=== PATIENT | female | born 1970 | race Caucasian/White ===

== ENCOUNTER 2023-04-04 11:50 | Emergency (ER) | payer SELFPAY ==
[~2023-04-04] VITALS: Ht 144.8 cm; Wt 56.6 kg
[2023-04-04 12:08] VITALS: BP 125/51; PULSE 73; TEMP 99.1; O2SAT 94
[2023-04-04] MEDS ORDERED: VALA100031 PO ×3 (13:25→14:41)
[2023-04-04] MEDS ORDERED: NAPR-56 PO ×3 (13:25→14:41)
[2023-04-04] MEDS ORDERED: HYDR-3965 PO ×5 (13:25→14:54)
[2023-04-04] MEDS ORDERED: HYDROcodone/acetaminophen 5mg/325mg tablet PO ONE (13:40)
[2023-04-04 13:45] VITALS: RESP 20
== END 2023-04-04 13:52 | disposition home or self-care (01) ==
LOC: ER 11:51
DX: B02.9 Zoster without complications (principal); Z79.899 Other long term (current) drug therapy
CPT/HCPCS: 99283